=== PATIENT | female | born 1985 | race African-American/Black ===

== ENCOUNTER 2016-08-27 21:35 | Emergency (ER) | payer MEDICAID ==
[~2016-08-27] VITALS: Ht 154.9 cm; Wt 90.7 kg
[2016-08-27] MEDS ORDERED: NKM (22:01)
[2016-08-27] MEDS ORDERED: Ketorolac 30mg Inj IV ONE (22:15)
--- NOTE | 2016-08-27 22:16 | Emergency Room Report ---
History of Present Illness General Chief Complaint: Gastrointestinal Bleed Source: Patient Present Illness HPI This is a 30-year-old female with no medical problem. She presents with chief complaint of abdominal pain and cramps. She also has perfuse diarrhea since last night. Noted there was black after taking Pepto-Bismol. Denies any fever or chills. Has a lot of cramps. Also with nausea and vomiting but not as much. Also complaining dental pain. No dysuria frequency. Allergies: Coded Allergies: No Known Allergies (Unverified , 08/27/16) Patient History Past Medical History: none, see triage record, old chart reviewed Past Surgical History: none Pertinent Family History: none Social History: Denies: smoking Now: No Immunizations: other Reviewed Nursing Documentation: PMH: Agreed, PSxH: Agreed Review of Systems Eye: Denies: blurred vision, eye pain ENT: Denies: ear pain, nose congestion, throat swelling Respiratory: Denies: cough, shortness of breath Cardiovascular: Denies: chest pain, palpitations Gastrointestinal: Reports: abdominal pain, diarrhea, nausea, vomiting Musculoskeletal: Denies: back pain, joint pain Skin: Denies: rash Neurological: Denies: headache, numbness Endocrine: Denies: increased thirst, increased urine Hematologic/Lymphatic: Denies: easy bruising All Other Systems: negative except mentioned in HPI Physical Exam vitals unremarkable Sp02 EP Interpretation: reviewed, normal General Appearance: well appearing, no apparent distress, alert, obese Head: normocephalic, atraumatic Eyes: bilateral eye EOMI, bilateral eye PERRL ENT: hearing grossly normal, normal pharynx, other - poor dentition. Percussive tenderness to Left lower 2nd molar. No visual abscess. Neck: full range of motion, supple, no meningismus Respiratory: chest non-tender, lungs clear, normal breath sounds Cardiovascular #1: regular rate, rhythm, no murmur Gastrointestinal: normal bowel sounds, non tender, no mass, no organomegaly, no bruit, non-distended, abnormal bowel sounds - Hyperactive Musculoskeletal: back normal, gait/station normal, normal range of motion Neurologic: alert, oriented x3 Psychiatric: mood/affect normal Skin: warm/dry Procedures Additional Procedure Procedure Narrative Procedure: Dental block. Indication: Dental pain Description: I injected the left inferior alveolar nerve with 2 mL of 1% lidocaine without epinephrine. Patient has good pain relief. Patient tolerated procedure without a problem. Medical Decision Making Diagnostic Impression: Primary Impression: Abdominal pain Qualified Codes: R10.84 - Generalized abdominal pain Additional Impressions: Vomiting and diarrhea Dental abscess ER Course Patient with denies abdominal pain with vomiting and diarrhea. The darkness of her stool is probably secondary to Pepto-Bismol. She was heme-negative on my testing. Hemoglobin stable. Stool is yellowish in color. This is most likely a viral gastroenteritis. I see no evidence of acute abdomen. No evidence of obstruction. She felt better now. She will need to see a dentist also. Lab Results Impression labs unremarkable Status: unchanged Disposition: HOME, SELF-CARE Condition: Stable Scripts Hydrocodone/Acetaminophen 5-325* (HYDROCODONE/ACETAMINOPHEN 5-325*) 1 Each Tablet 1 TAB ORAL Q6H Y for For Pain, #20 TAB 0 Refills Prov: NELIDA RENE M.D. 08/27/16 Amoxicillin* (AMOXIL*) 500 Mg Capsule 500 MG ORAL THREE TIMES A DAY, #21 CAP Prov: NELIDA RENE M.D. 08/27/16 Additional Instructions: Followup with your DrChrsitoph in 2-3 days. Return if symptom worsen. Followup with dentist MIRTA. NELIDA RENE M.D. Aug 27, 2016 22:16
[2016-08-27 22:18] VITALS: BP 99/58
[2016-08-27 22:36] LABS: BASOPHILS % (AUTO) 0.7 % (0.0-2.0); EOSINOPHILS % (AUTO) 0.3 % (0.0-3.0); LYMPHOCYTES % (AUTO) 11.5 % (20.0-45.0); MEAN CORPUSCULAR HEMOGLOBIN 29.9 PG (27.0-31.0); MEAN CORPUSCULAR VOLUME 93 FL (80-99); MEAN PLATELET VOLUME 6.5 FL (6.5-10.1); MONOCYTES % (AUTO) 6.4 % (1.0-10.0); NEUTROPHILS % (AUTO) 81.2 % (45.0-75.0); PLATELET COUNT 239 K/UL (150-450); RED BLOOD COUNT 4.08 M/UL (4.20-5.40); RED CELL DISTRIBUTION WIDTH 13.1 % (11.6-14.8); WHITE BLOOD COUNT 7.8 K/UL (4.8-10.8)
[2016-08-27 22:51] LABS: APPEARANCE,URINE CLEAR; KETONES,URINE NEGATIVE (NEGATIVE); LEUKOCYTE ESTERASE ,URINE NEGATIVE (NEGATIVE); NITRITE,URINE NEGATIVE (NEGATIVE); PH,URINE 5 (4.5-8.0); PROTEIN,URINE NEGATIVE (NEGATIVE); UROBILINOGEN,URINE NORMAL MG/DL (0.0-1.0)
[2016-08-27 22:52] LABS: ALANINE AMINOTRANSFERASE 12 U/L (3-33); ANION GAP 17 (5-15); ASPARTATE AMINO TRANSFERASE 17 U/L (5-40); CALCIUM 9.1 mg/dL (8.6-10.2); CARBON DIOXIDE 23 mEQ/L (20-30); CHLORIDE 98 mEQ/L (98-107); CREATININE 1.1 mg/dL (0.5-0.9); GLOMERULAR FILTRATION RATE > 60 mL/min (>60); HEMOLYSIS 1; LIPASE 18 U/L (< 60); POTASSIUM 3.6 mEQ/L (3.4-4.9); SODIUM 138 mEQ/L (135-145); TOTAL PROTEIN 7.8 g/dL (6.6-8.7)
[2016-08-27 22:58] LABS: RBC,URINE 0-2 /HPF (0 - 2)
[2016-08-27 22:59] LABS: BACTERIA,URINE OCCASIONAL /HPF; SQUAMOUS EPITHELIAL CELL,UR FEW /LPF (NONE/OCC); WBC,URINE 0-2 /HPF (0 - 2)
[2016-08-27] MEDS ORDERED: AMOXICILLIN500 MG ORAL (23:35)
[2016-08-27] MEDS ORDERED: HYDROCODON-ACE1 EA15 ORAL (23:35)
[2016-08-27 23:50] VITALS: BP 101/60
== END 2016-08-27 23:50 | disposition home or self-care (01) ==
LOC: EMR 22:25
DX: R10.84 Generalized abdominal pain (principal); R19.7 Diarrhea, unspecified; K04.7 Periapical abscess without sinus; R11.2 Nausea with vomiting, unspecified
CPT/HCPCS: 36415; 80053; 81003; 81025; 83690; 85025; 96374; 96375; 99284; J1885; J2405; Z7502